=== PATIENT | male | born 1975 | race Caucasian/White ===

== ENCOUNTER → 2020-02-28 | Outpatient (CLI) | payer BC ==
[~2020-02-28] MED LIST: ADULT LOW DOSE81 MG PO; ALBUTEROL2.5 MG/31 INH; AMBIEN 10 MG TA10 MG PO; APAP500 PO; AVELOX 400 MG400 MG PO; AZITHROMYCIN 2250 MG PO; CARDIZEM; CARDIZEM CD180 MG; CIPROFLOXACIN500 M1 PO; DIURETIC SOFTGE50 MG; FLOMAX0.4 MG PO; IBUPROFEN 200200 M1 PO; LOPRESSOR100 MG PO; LOPRESSOR25 PO; NICOTINE TRANSD21 M1 TD; NICOTINE TRANSD21 M1 TOP; NOHOMEMEDICATIONS; PERCOCET 5-3251 EACH PO; PREDNISONE 10 M10 M1 PO; PRINIVIL20 MG PO; PROAIR HFA8.5 GM IH
== END ==
LOC: M.RAD 09:54
PROVIDERS: ATTEND Internal Medicine Critical Care Medicine
DX: J45.41 Moderate persistent asthma with (acute) exacerbation (principal); R06.02 Shortness of breath; Z72.0 Tobacco use